=== PATIENT | male | born 1995 | race Caucasian/White ===

== ENCOUNTER → 2016-12-24 | Outpatient (CLI) | payer OTHER ==
[2016-12-24 13:02] LABS: TOTAL IRON BINDING CAPACITY 346 mcg/dl (250-450)
== END | disposition home or self-care (01) ==
LOC: C.LABPBG 08:11
PROVIDERS: ATTEND Physician Assistant
DX: R74.8 Abnormal levels of other serum enzymes (principal)

== ENCOUNTER → 2016-12-30 | Outpatient (CLI) | payer OTHER ==
--- NOTE | 2016-12-30 07:37 | DIAGNOSTIC IMAGING REPORT ---
(LIVER) ABDOMEN LIMITED HISTORY: 21 years Male R74.8 Elevated liver enzymes COMPARISON: None available TECHNIQUE: Multiple real-time sonographic images of the abdominal right upper quadrant were obtained assessing grayscale appearance, color and spectral waveform analysis. FINDINGS: The mid pancreas is unremarkable with distal body and tail obscured by bowel gas. Hepatic parenchyma is within normal limits without evidence of significant fatty infiltration or focal mass. Liver measures up to 14.4 cm. Common bile duct is normal, 2.8 mm in diameter. Gallbladder is mildly contracted without shadowing cholelithiasis, gallbladder wall thickening or pericholecystic fluid collections. Sonographic Ordaz sign was negative. Cyst of the inferior pole right kidney measures 1.2 x 1.1 x 1.1 cm. Right kidney is otherwise unremarkable without hydronephrosis. Normal waveforms are seen within the IVC, however slow flow is noted. IMPRESSION: 1. Mildly contracted gallbladder without cholelithiasis or sonographic evidence of acute cholecystitis. 2. No biliary ductal dilatation. 3. Unremarkable sonographic appearance of the liver. 4. Slow flow incidentally noted within the patent IVC. The above report was generated using voice recognition software. It may contain grammatical, syntax or spelling errors. Electronically signed by: Erickson Shi M.D. 12/30/2016 7:35 AM Dictated Date/Time: 12/30/2016 7:30 AM
== END | disposition home or self-care (01) ==
LOC: C.ULTR 06:44
PROVIDERS: ATTEND Physician Assistant
DX: R74.8 Abnormal levels of other serum enzymes (principal)

== ENCOUNTER → 2017-01-28 | Outpatient (CLI) | payer OTHER | END | disposition home or self-care (01) | LOC: C.LAB1850 17:14 | PROVIDERS: ATTEND Physician Assistant | DX: R74.8 Abnormal levels of other serum enzymes (principal) ==